=== PATIENT | female | born 1985 | race Caucasian/White ===

== ENCOUNTER 2016-03-30 09:58 | Day surgery (SDC) | payer BC ==
[~2016-03-30 09:58] MED LIST: Buffered Lidocaine 1% SYR 3ML* 3 ML/SYR SYRINGE INTRADERM ONE
[2016-03-30] MEDS ORDERED: Buffered Lidocaine 1% SYR 3ML* 3 ML/SYR SYRINGE ONE (10:12)
[2016-03-30 10:31] LABS: Manual Entry Verification AS; UR Preg Internal Control QC Line Present; UR Preg Kit Lot# 6060104
[2016-03-30] MEDS ORDERED: fentaNYL* 50 MCG/ML 2 ML VIAL (100 MCG VIAL) ONE ×2 (11:04→12:01)
[2016-03-30] MEDS ORDERED: Famotidine IV* 10 MG/ML 2 ML (20 mg) ONE (11:04)
[2016-03-30] MEDS ORDERED: Midazolam* 1 MG/ML 2 ML VIAL (2 MG) ONE (11:04)
[2016-03-30] MEDS ORDERED: HYDROmorphone INJ* 1 MG/ML CARPUJECT SYRINGE IV PRN (11:30)
[2016-03-30] MEDS ORDERED: HYDROcodone/ACETAMIN 5-325 MG* 1 TAB PO PRN (11:30)
[2016-03-30] MEDS ORDERED: PROCHLORPERAZINE INJ 5 MG/ML 2 ML VIAL IV PRN (11:30)
[2016-03-30] MEDS ORDERED: DiMENhydriNATE IV* 50 MG/ML VIAL IV PUSH PRN (11:30)
[2016-03-30] MEDS ORDERED: fentaNYL* 50 MCG/ML 2 ML VIAL (100 MCG VIAL) IV PRN (11:30)
[2016-03-30] MEDS ORDERED: Ondansetron INJ* 2 MG/ML VIAL IV PRN (11:30)
[2016-03-30] MEDS ORDERED: Acetaminophen TAB* 325 MG PO PRN (11:30)
[2016-03-30] MEDS ORDERED: Propofol* 10 MG/ML 20 ML BTL IV PUSH ONE (12:10)
[2016-03-30] MEDS ORDERED: Ondansetron INJ* 2 MG/ML VIAL ONE ×2 (12:10→13:08)
[2016-03-30] MEDS ORDERED: Succinylcholine* 20 MG/ML 10 ML VIAL ONE (12:10)
[2016-03-30] MEDS ORDERED: Lidocaine 2% PF * 5 ML VIAL ONE (12:10)
[2016-03-30] MEDS ORDERED: Dexamethasone IV* 4 MG/ML 1 ML (4 MG) ONE (12:10)
[2016-03-30] MEDS ORDERED: oxyCODONE ORAL.SOLN* 5 MG/5 ML UDC ONE ×2 (12:53→14:07)
[2016-03-30] MEDS ORDERED: PROCHLORPERAZINE INJ 5 MG/ML 2 ML VIAL ONE (13:08)
[2016-03-30 14:16] VITALS: BP 120/68
--- NOTE | 2016-03-31 02:16 | OP ---
DATE OF OPERATION: 03/30/16 - SDS DATE OF : 87 SURGEON: Zhou Cano MD ANESTHESIOLOGIST: Dr. Beebe ANESTHESIA: General endotracheal anesthesia. PRE-OP DIAGNOSIS: Chronic tonsillitis. POST-OP DIAGNOSIS: Chronic tonsillitis. OPERATIVE PROCEDURE: Tonsillectomy. COMPLICATIONS: None. DISPOSITION: Good. SPECIMEN: Left and right tonsils. BLOOD LOSS: Minimum. DESCRIPTION OF PROCEDURE: The patient was taken to the operating room, placed in the supine position on the operating room table. General anesthesia was induced and she was orotracheally intubated, turned and draped for the surgery. A Hollis-Arron mouth gag was inserted, retraction was applied, suspended from the Velasquez stand. The right tonsil was grasped, manual traction applied. Using Bovie cautery, it was dissected along its capsule removing it from the underlying pharyngeal musculature. Left tonsil was grasped, manual traction was applied. Again using Bovie cautery, it was dissected along its capsule, removing it from the underlying pharyngeal musculature. Once this was done, hemostasis was ensured in both tonsillar fossae using suction cautery. Once hemostasis was ensured, orogastric tube was inserted in the stomach and stomach contents were suctioned. Hollis-Arrno mouth gag and rubber catheter was released and removed. The patient tolerated the procedure well, no complications, transferred to the recovery room in stable condition. [id number]/CPS #: [id number] MTDD
== END 2016-03-30 14:23 | disposition home or self-care (01) ==
LOC: OR 09:58
PROVIDERS: ATTEND Otolaryngology
DX: J35.01 Chronic tonsillitis (principal); Z87.891 Personal history of nicotine dependence
CPT/HCPCS: 81025; 88304; A9270-GY; J0330; J0780; J1100; J2250; J2405; J2704; J3010

== ENCOUNTER 2018-01-06 08:09 | Emergency (ER) | payer BC ==
[2018-01-06 08:21] VITALS: BP 140/93
--- NOTE | 2018-01-06 09:27 | UC ---
Psychiatric Complaint HPI - HPI Summary HPI Summary: Patient presents with a past medical history of depression. she states her medications are not working and she has been experiencing periods of crying for the last several days. She denies any suicidal or homicidal thoughts. SHe has never attempted to harm herself, nor anyone else. She is cared for by Dr. Hogue who prescribes her depression medication, and Dr. Baker for out patient counseling. she could not get ahold of Dr. Hogue so she came to the walk-in. - History Of Current Complaint Chief Complaint: UCGeneralIllness Stated Complaint: MENTAL HEALTH CONSULT Time Seen by Provider: 01/06/18 08:53 Hx Obtained From: Patient Hx Last Menstrual Period: 12/29/17 Onset/Duration: Gradual Onset Timing: Intermittent Episode Lasting Character: Depressed Aggravating Factor(s): Nothing Alleviating Factor(s): Nothing Associated Signs And Symptoms: Negative Related History: Positive For: Prior Psychiatric Issues - depression - Risk Factor(s) Completed Suicide Risk Factors: White Moroc[place] - Allergies/Home Medications Allergies/Adverse Reactions: Allergies Allergy/AdvReac Type Severity Reaction Status Date / Time ciprofloxacin Allergy Hives Verified 01/06/18 08:22 latex Allergy Hives Verified 01/06/18 08:22 Penicillins Allergy Hives Verified 01/06/18 09:52 Home Medications: Home Medications hydrOXYzine HCL TAB* [Atarax 25 MG TAB*] 25 mg PO BEDTIME PRN 01/06/18 [History Confirmed 01/06/18] PMH/Surg Hx/FS Hx/Imm Hx Previously Healthy: Yes Psychological History: Depression Other History Of: Negative For: Anticoagulant Therapy - Surgical History Surgical History: Yes Surgery Procedure, Year, and Place: WISDOM TEETH 1999 OFFICE - Family History Known Family History: Positive: Cardiac Disease, Hypertension Family History: no family history o renal disease - Social History Occupation: Employed Full-time Lives: Alone Alcohol Use: None Substance Use Type: None Smoking Status (MU): Former Smoker Type: Cigarettes Amount Used/How Often: LESS THAN 1 PP/WEEK FOR 10 YRS Length of Time of Smoking/Using Tobacco: 10 YRS Have You Smoked in the Last Year: No When Did the Patient Quit Smoking/Using Tobacco: 2014 Review of Systems All Other Systems Reviewed And Are Negative: Yes Constitutional: Positive: Negative Skin: Positive: Negative Eyes: Positive: Negative ENT: Positive: Negative Respiratory: Positive: Negative Cardiovascular: Positive: Negative Gastrointestinal: Positive: Negative Genitourinary: Positive: Negative Motor: Positive: Negative Neurovascular: Positive: Negative Musculoskeletal: Positive: Negative Neurological: Positive: Negative Psychological: Positive: Depressed Physical Exam Triage Information Reviewed: Yes Appearance: Other: - tearful Vital Signs: Initial Vital Signs Temp 97.0 F 01/06/18 08:14 Pulse 125 01/06/18 08:14 Resp 18 01/06/18 08:14 BP 140/93 01/06/18 08:14 Pulse Ox 100 01/06/18 08:14 Vital Signs Reviewed: Yes Eye Exam: Normal ENT Exam: Normal Neck exam: Normal Respiratory Exam: Normal Cardiovascular Exam: Normal Skin Exam: Normal Psych Complaint Course/Dx - Course Course Of Treatment: Patient presents with a past medicalhistory of depression and is cared for by a Dr. Conway who prescribeds her medication, and Dr. Baker for out patient counseling. Her medications have become less effective and she has been experiening bouts of crying. She has never attempted to hurt herself or anyone else, and has no family history of suicide. She was willing to go the the ER at [facility] where she can talk to an payroll technician. I called and spoke to [facility] ER charge nurse he is aware that the Elizabeth is coming. I also gave Elizabeth my cell phone number and asked her if she would txt me and let me know when arrives in the ER so I can then re-call triage and make him aware she is in the waiting room for evalauation, and she was at that time being triaged. She arrive safely to the ER for further evaluation of her depression. - Differential Dx/Diagnosis Differential Diagnosis/HQI/PQRI: Depression Provider Diagnoses: depression Discharge - Sign-Out/Discharge Documenting (check all that apply): Patient Departure All imaging exams completed and their final reports reviewed: No - Discharge Plan Condition: Stable Disposition: TRANS HIGHER LVL OF CARE FAC Patient Education Materials: Depression (DC) Referrals: Jessica Du MD [Primary Care Provider] - Additional Instructions: I spoke to Jacob; ER change nurses. they do have an payroll technician avalable to help you , go directly to the ER from here. - Billing Disposition and Condition Condition: STABLE Disposition: Trans Higher Lvl of Care Fac - Attestation Statements Scribe Documentation Reviewed: No Provider Attestation: Per institutional requirements, I have reviewed the chart, however, I was not consulted specifically or made aware of this patient by the midlevel provider. I did not personally evaluate, interact with , or disposition this patient.
--- NOTE | 2018-01-07 14:41 | UC ---
- Progress Note Progress Note: No imaging Discharge - Sign-Out/Discharge Documenting (check all that apply): Post-Discharge Follow Up All imaging exams completed and their final reports reviewed: No Studies - Discharge Plan Condition: Stable Disposition: TRANS HIGHER LVL OF CARE FAC Patient Education Materials: Depression (DC) Referrals: Jessica Du MD [Primary Care Provider] - Additional Instructions: I spoke to Jacob; ER change nurses. they do have an artisan plasterer avalable to help you , go directly to the ER from here. - Billing Disposition and Condition Condition: STABLE Disposition: Trans Higher Lvl of Care Fac
== END 2018-01-06 09:25 | disposition short-term general hospital (02) ==
LOC: UCEAST 08:09
DX: F32.9 Major depressive disorder, single episode, unspecified (principal); Z88.1 Allergy status to other antibiotic agents; Z88.0 Allergy status to penicillin; Z91.040 Latex allergy status; Z87.891 Personal history of nicotine dependence
CPT/HCPCS: 99212; G0463

== ENCOUNTER 2018-01-06 09:45 | Inpatient (IN) | payer BC ==
--- NOTE | 2018-01-06 10:01 | ED ---
Psychiatric Complaint - HPI Summary HPI Summary: Pt is a 32 y/o female sent by the who presents to the ED c/o depression and anxiety. Shes been feeling down for the past 2 weeks, but it became worse over the past 2 days. Pt couldnt stop crying the past 2 days. She has a therapist, and denies any recent changes in medications. She is not a threat to herself or others, and denies any SI. Pt reports recent weight gain. She denies any drug or alcohol use. Pt has never been admitted for psychiatric reasons. She denies any CP, SOB, or urinary symptoms. LNMP a few days ago. - History Of Current Complaint Chief Complaint: EDPsychosocial Time Seen by Provider: 01/06/18 09:53 Hx Obtained From: Patient Hx Last Menstrual Period: 12/29/17 Onset/Duration: Gradual Onset, Lasting Weeks - 2, Worse Since Timing: Constant Character: Depressed, Anxious Alleviating Factor(s): Nothing Related History: Positive For: Prior Psychiatric Issues Has Suicidal: Denies: Thoughts Has Homicidal: Denies: Thoughts - Allergies/Home Medications Allergies/Adverse Reactions: Allergies Allergy/AdvReac Type Severity Reaction Status Date / Time ciprofloxacin Allergy Hives Verified 01/06/18 08:22 latex Allergy Hives Verified 01/06/18 08:22 Penicillins Allergy Hives Verified 01/06/18 09:52 Home Medications: Home Medications Levothyroxine TAB* [Synthroid TAB*] 37.5 mcg PO DAILY 01/06/18 [History Confirmed 01/06/18] Sertraline* [Zoloft*] 50 mg PO DAILY 01/06/18 [History Confirmed 01/06/18] buPROPion SR TAB* [Wellbutrin SR TAB*] 200 mg PO DAILY 01/06/18 [History Confirmed 01/06/18] PMH/Surg Hx/FS Hx/Imm Hx Endocrine/Hematology History: Reports: Hx Thyroid Disease - HYPOTHYROID Denies: Hx Anticoagulant Therapy, Hx Diabetes Cardiovascular History: Denies: Hx Hypertension, Hx Pacemaker/ICD Respiratory History: Reports: Other Respiratory Problems/Disorders - CHRONIC TONSILLITIS FOR PAST 6 WEEKS Denies: Hx Asthma, Hx Chronic Obstructive Pulmonary Disease (COPD) GI History: Denies: Hx Ulcer History: Reports: Other Problems/Disorders - URETHRAL STRICTURE Musculoskeletal History: Reports: Other Musculoskeletal History - HX OF KNEE ISSUES OVER THE YRS, OCCASIONAL LIMPING Sensory History: Reports: Hx Contacts or Glasses - GLASSES Denies: Hx Hearing Aid Opthamlomology History: Reports: Hx Contacts or Glasses - GLASSES Psychiatric History: Reports: Hx Anxiety, Hx Depression - TAKES RX Denies: Hx Panic Disorder - Surgical History Surgery Procedure, Year, and Place: WISDOM TEETH [address] CAGLE Hx Anesthesia Reactions: No Infectious Disease History: No Infectious Disease History: Denies: Hx Hepatitis, Hx Human Immunodeficiency Virus (HIV), Traveled Outside the [place] in Last 30 Days - Family History Known Family History: Positive: Cardiac Disease, Hypertension Negative: Renal Disease - Social History Alcohol Use: None Hx Substance Use: No Substance Use Type: Reports: None Hx Tobacco Use: Yes Smoking Status (MU): Former Smoker Type: Cigarettes Amount Used/How Often: LESS THAN 1 PP/WEEK FOR 10 YRS Length of Time of Smoking/Using Tobacco: 10 YRS Have You Smoked in the Last Year: No Review of Systems Negative: Fever Positive: Anxious, Depressed. Negative: Other - SI All Other Systems Reviewed And Are Negative: Yes Physical Exam - Summary Physical Exam Summary: Appearance: Well appearing, no pain distress Skin: warm, dry, reflects adequate perfusion Head/face: normal Eyes: EOMI, PAUL ENT: mucous membranes moist Neck: supple, non-tender Respiratory: CTA, breath sounds present Cardiovascular: RRR, pulses symmetrical Abdomen: non-tender, soft Bowel Sounds: present Musculoskeletal: normal, strength/ROM intact Neuro: normal, sensory motor intact, A&Ox3 Psych: some flat affect, no SI/HI Triage Information Reviewed: Yes Vital Signs On Initial Exam: Initial Vitals Temp Pulse Resp BP Pulse Ox 97.7 F 105 16 147/98 100 01/06/18 09:49 01/06/18 09:49 01/06/18 09:49 01/06/18 09:49 01/06/18 09:49 Vital Signs Reviewed: Yes Diagnostics - Vital Signs Vital Signs Temp Pulse Resp BP Pulse Ox 01/06/18 09:49 97.7 F 105 16 147/98 100 - Laboratory Lab Statement: Any lab studies that have been ordered have been reviewed, and results considered in the medical decision making process. Re-Evaluation - Re-Evaluation First Eval Re-Evaluation Time: 10:03 Change: Unchanged Comment: Pt is medically cleared for a MHE. Course/Dx - Course Course Of Treatment: Patient is medically evaluated and cleared for crisis evaluation. Following crisis evaluation was elected that she be admitted for further evaluation and treatment by the psychiatrist. - Differential Dx/Clinical Impression Differential Diagnosis/HQI/PQRI: Positive: Acute Psychosis, Anxiety, Bipolar Disorder, Depression, Suicidal Ideation, Suicidal Gesture Provider Diagnosis: Depression, Anxiety - Physician Notifications Discussed Care Of Patient With: Edgardo Iyer Time Discussed With Above Provider: 13:00 Instructed by Provider To: Admit As Inpatient Discharge - Sign-Out/Discharge Documenting (check all that apply): Patient Departure - Admit - Discharge Plan Condition: Improved Disposition: ADMITTED TO [facility] Patient Education Materials: Depression (ED) Referrals: [facility] [Outside] Jessica Du MD [Primary Care Provider] - Additional Instructions: Call your nurse practitioner for psychiatry first thing in the morning. Follow- up as described by the mental health mangle tender here. [facility] also has resources that he can help you if you can't get in promptly. Return if worse, new symptoms or other concerns. - Billing Disposition and Condition Condition: IMPROVED Disposition: Admitted to [facility] - Attestation Statements Document Initiated by Scribe: Yes Documenting Scribe: Anna Navarro Provider For Whom Margarito is Documenting (Include Credential): Leonel Carlton MD Scribe Attestation: Anna Birmingham, scribed for Leonel Carlton MD on 01/06/18 at 1529. Scribe Documentation Reviewed: Yes Provider Attestation: The documentation as recorded by the Anna velazquez accurately reflects the service I personally performed and the decisions made by me, Leonel Carlton MD
[2018-01-06] MEDS ORDERED: Acetaminophen TAB* 325 MG PO PRN (14:47)
[2018-01-06] MEDS ORDERED: Al Hydrox/Mg Hydrox/Simet LIQ* 30 ML UDC PO PRN (14:47)
[2018-01-06] MEDS ORDERED: hydrOXYzine HCL TAB* 25 MG PO PRN (14:50)
[2018-01-07] MEDS: Sertraline* 50 MG TAB PO SCH (07:31)
[2018-01-07] MEDS: Levothyroxine TAB* 25 MCG TAB PO SCH (07:31)
[2018-01-07] MEDS: buPROPion SR TAB.SR* 200 MG PO SCH (07:31)
[2018-01-07] MEDS ORDERED: Ibuprofen TAB* 600 MG PO ONE (12:09)
--- NOTE | 2018-01-07 13:19 | PN ---
MHU: Group Therapy Note - Service Type Service Type: [id number] Group Psychotherapy - Cognitive Behavioral Group Therapy ( CBT):Patient was attentive and participatory in CBT programming this morning, and remained in good behavioral control. Patient expressed positive insights regarding relevant treatment interventions and goals.
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
[2018-01-07 18:03] LABS: ABS Basophils 0 10^3/ul (0-0.2); ABS Eosinophils 0.1 10^3/ul (0-0.6); ABS Lymphocytes 2.2 10^3/ul (1.0-4.8); ABS Monocytes 0.5 10^3/ul (0-0.8); ABS Neutrophils 3.8 10^3/ul (1.5-7.7); ABS Nucleated RBC 0 10^3/ul; Eosinophil % 1.2 % (0-6); Hematocrit 42 % (35-47); Hemoglobin 13.9 g/dl (12.0-16.0); Lymphocyte % 33.3 % (25-47); Mean Corpuscular HGB Conc 33 g/dl (31-36); Mean Corpuscular Hemoglobin 30 pg (27-31); Mean Corpuscular Volume 90 fL (80-97); Mean Platelet Volume 8.5 fL (7.4-10.4); Nucleated Red Blood Cells % 0.1; Platelet Count 349 10^3/ul (150-450); Red Blood Count 4.62 10^6/ul (4.00-5.40); Red Cell Distribution Width 13 % (10.5-15); White Blood Count 6.7 10^3/ul (3.5-10.8)
[2018-01-07] MEDS ORDERED: Ibuprofen TAB* 600 MG PO PRN (18:09)
[2018-01-07] MEDS: ARIPiprazole TAB* 2 MG PO SCH (21:13)
[2018-01-08] MEDS: Sertraline* 50 MG TAB PO SCH (08:25)
[2018-01-08] MEDS: Levothyroxine TAB* 25 MCG TAB PO SCH (08:25)
[2018-01-08] MEDS: buPROPion SR TAB.SR* 200 MG PO SCH (08:25)
--- NOTE | 2018-01-08 11:50 | PN ---
MHU: Group Therapy Note - Service Type Service Type: [id number] Group Psychotherapy - Cognitive Behavioral Group Therapy ( CBT):Patient was attentive and participatory in CBT programming this morning, and remained in good behavioral control. Patient expressed positive insights regarding relevant treatment interventions and goals.
[2018-01-08 13:28] LABS: Urine Appearance Cloudy; Urine Blood 2+ (Negative); Urine Color Yellow; Urine Ketones 1+ (Negative); Urine Protein 1+(30 mg/dL) (Negative); Urine Red Blood Cell 2+(6-10/hpf) (Absent); Urine Specific Gravity 1.032 (1.010-1.030); Urine Urobilinogen Negative (Negative); Urine White Blood Cell Trace(0-5/hpf) (Absent)
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
--- NOTE | 2018-01-08 16:16 | PN ---
[facility]: Group Therapy Note - Service Type Service Type: [id number] Group Psychotherapy - Group Participation Patient Participating in Group: Yes Level of Group Participation: Other - Elizabeth split her time in group between paying attentoin and doing her MMPI. She was pleasant and generally attentive in group.
[2018-01-08] MEDS: ARIPiprazole TAB* 2 MG PO SCH (21:07)
[2018-01-09] MEDS: Levothyroxine TAB* 25 MCG TAB PO SCH (08:29)
[2018-01-09] MEDS: Sertraline* 50 MG TAB PO SCH (08:29)
[2018-01-09] MEDS: buPROPion SR TAB.SR* 200 MG PO SCH (08:29)
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
[2018-01-09] MEDS: ARIPiprazole TAB* 2 MG PO SCH (22:06)
[2018-01-10] MEDS: Levothyroxine TAB* 25 MCG TAB PO SCH (08:38)
[2018-01-10] MEDS: Sertraline* 50 MG TAB PO SCH (08:38)
[2018-01-10] MEDS: buPROPion SR TAB.SR* 200 MG PO SCH (08:38)
[2018-01-10] MEDS: ARIPiprazole TAB* 2 MG PO SCH (21:20)
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
[2018-01-11] MEDS: Levothyroxine TAB* 25 MCG TAB PO SCH (07:50)
[2018-01-11] MEDS: cloNIDine TAB* 0.1 MG PO SCH (07:52)
[2018-01-11] MEDS: buPROPion SR TAB.SR* 200 MG PO SCH (07:52)
[2018-01-11] MEDS: Sertraline* 50 MG TAB PO SCH (07:52)
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
[2018-01-11] MEDS: ARIPiprazole TAB* 2 MG PO SCH (21:09)
[2018-01-12] MEDS: Levothyroxine TAB* 25 MCG TAB PO SCH (08:42)
[2018-01-12] MEDS: cloNIDine TAB* 0.1 MG PO SCH (08:43)
[2018-01-12] MEDS: Sertraline* 50 MG TAB PO SCH (08:44)
[2018-01-12] MEDS: buPROPion SR TAB.SR* 200 MG PO SCH (08:44)
[2018-01-12] MEDS: ARIPiprazole TAB* 2 MG PO SCH (21:03)
[2018-01-13 08:09] VITALS: BP 116/75
[2018-01-13] MEDS: buPROPion SR TAB.SR* 200 MG PO SCH (09:03)
[2018-01-13] MEDS: Sertraline* 50 MG TAB PO SCH (09:03)
[2018-01-13] MEDS: cloNIDine TAB* 0.1 MG PO SCH (09:04)
[2018-01-13] MEDS: Levothyroxine TAB* 25 MCG TAB PO SCH (09:04)
--- NOTE | 2018-01-14 10:13 | DS ---
CC: Yaa Hogue NP; Dr. Karina Baker; Jessica Du MD * DISCHARGE SUMMARY: DATE OF ADMISSION: 01/06/18 DATE OF DISCHARGE: 01/13/18 PROVIDER: Michelle Riddle NP in Psychiatry. SUPERVISING PHYSICIAN: Dr. Edgardo Iyer.* (DICTATED BY MICHELLE RIDDLE NP ) DIAGNOSES: [place] I: Major depressive disorder and generalized anxiety disorder. [place] II: Borderline personality disorder traits. CONDITION AT THE TIME OF DISCHARGE: Improved, psychiatrically cleared. Elizabeth is stable, she participated in groups, and was very social with peers. She has done well here psychiatrically. She tolerated new medications well including aripiprazole 2 mg, hydroxyzine 25 mg, and clonidine 0.1 mg. She will be attending therapy with Karina Baker. She will be seeing Yaa Hogue as her prescribing psychiatric practitioner. She will be attending [facility] at [facility] and Dr. Jessica Du is her primary care provider with whom she will follow up as needed. DISCHARGE INSTRUCTIONS TO THE PATIENT: A. Medications: 1. Aripiprazole 2 mg at bedtime. 2. Bupropion SR 200 mg daily. 3. Clonidine 0.1 mg at bedtime. 4. Hydroxyzine 25 mg at bedtime. 5. Levothyroxine 37.5 mcg. 6. Sertraline 50 mg daily. B. Diet is regular. C. Activities as tolerated. Elizabeth is a nonsmoker and there are no studies pending at the time of discharge. D. Followup care. She has referrals to Karina Baker on Saturday at 4: 45. She is seeing Yaa Hogue at a time to be determined. She will be referred to [facility]. She is following up with Dr. Jessiac Du as needed. E. Substance abuse followup is not indicated. HOSPITAL COURSE: Part A: Chief Complaint: "I've had anxiety and depression most of my life. What I've been doing hasn't been working. " Elizabeth is a 32- year-old female who is single with a history of depression and anxiety who arrives, brought in by car and is on a voluntary status following difficulty coordinating care outside of here and feeling desperate and hopeless. She states that she has been pushing through her entire life and never really doing much more than basic functioning. She does not feel like she has ever had an opportunity to thrive. 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 She does not want to stay in her job, but she is doing so because it is the source of her income and her health insurance. She has a boyfriend named Noble and they have been together for 4 to 6 months. He seems to be withdrawing his support a bit because of her mental health status and him having a young daughter. She has increased sleep and decreased interest. She feels guilty and has done so since she was a child. Her energy is low, she sleeps a lot. She cannot concentrate and this is borne out in her inability to master schooling. Her appetite is larger and she has in the past had suicidal ideation. Part B: Psychiatric treatment was rendered. Elizabeth was admitted to the Adult Behavioral Unit and placed on 15-minute checks for safety which were changed to the 30-minute checks and access to a staff pass. She did well on the unit and went to groups. She interacted with peers very well. She tolerated med changes. She did not like clonidine in the daytime. She wanted to try it at bedtime and that is acceptable. She did an MMPI and had a consultation with Erik Christine, PhD. Meds that were started included: Aripiprazole 2 mg, clonidine 0.1. Other meds were continued from home including sertraline 50, levothyroxine 37.5, bupropion SR 200 mg. Consult was entered with Erik Christine as mentioned before. She has improved significantly. She appears more confident and is able to negotiate her life here on the unit with ease. She remains anxious that the stressors in her outside life are going to be too difficult for her to manage. In the meantime; however, she did discover that her friends are much more supportive than she thought. They helped her by doing her laundry and cleaning her apartment. She feels mireya and grateful to those friends. She is planning on returning back to work on . She has not asked for additional accommodations at this time. She is improved, she is less anxious, she has a bright smile. She is not depressed at this time. She remarks that she is very happy about her experience here. MICHELLE RIDDLE, [employer] BI DEVELOPER [id number]/[facility] #: [id number] [facility] MEDICAL CENTERBashir
== END 2018-01-13 14:20 | disposition home or self-care (01) | DRG 751 ==
LOC: ED 09:45 → BSU 14:47
PROVIDERS: ADMIT Psychiatry & Neurology Psychiatry; ATTEND Psychiatry & Neurology Psychiatry
PROC: GZHZZZZ Group Psychotherapy (ICD-10-PCS; principal; 2018-01-06)
DX: F33.9 Major depressive disorder, recurrent, unspecified (principal); F41.1 Generalized anxiety disorder; E66.3 Overweight; E03.9 Hypothyroidism, unspecified; R11.2 Nausea with vomiting, unspecified; Z88.1 Allergy status to other antibiotic agents; Z88.0 Allergy status to penicillin; Z91.040 Latex allergy status; Z91.411 Personal history of adult psychological abuse; Z82.49 Family history of ischemic heart disease and other diseases of the circulatory system; Z87.891 Personal history of nicotine dependence; Z68.34 Body mass index [BMI] 34.0-34.9, adult
CPT/HCPCS: 36415; 80053; 80061; 81003; 81015; 83036; 84439; 84443; 84702; 85025; 87086; 90853; 93005; 96102; 99222; 99231; 99238; 99283; A9270-GY